=== PATIENT | female | born 1955 ===

== ENCOUNTER 2021-04-20 11:15 | Inpatient (IN) | payer OTHER ==
[~2021-04-20] VITALS: Ht 160 cm; Wt 102.1 kg
[2021-04-20] MEDS ORDERED: NATALIZUMAB (15:29)
[2021-04-20] MEDS ORDERED: FIRICET PO (15:29)
[2021-04-20] MEDS ORDERED: HYZAAR 100-251 EACH PO (15:29)
[2021-04-20] MEDS ORDERED: BACLOF PO (15:30)
[2021-04-20] MEDS ORDERED: ACTHAR IM (15:37)
[2021-04-25] MEDS ORDERED: SERTRALINE HCL50 MG (10:02)
[2021-04-25] MEDS ORDERED: HYDROCHLOROTHIA25 MG (10:02)
[2021-04-25] MEDS ORDERED: BACLOFEN20 MG (10:02)
[2021-04-25] MEDS ORDERED: GABAPENTIN100 M2 (10:02)
[2021-04-25] MEDS ORDERED: BUTALB-ACETAMI1 EACH (10:05)
[2021-04-25] MEDS ORDERED: TYSABRI300 MG/15 (10:05)
[2021-04-25] MEDS ORDERED: ACTHAR (10:06)
== END 2021-04-28 14:31 | DRG 470 ==
LOC: O/R 04-25 07:25 → SURH 04-25 11:15 → SURG 04-25 17:25 → SURH 04-25 19:17
PROVIDERS: ADMIT Orthopaedic Surgery; ATTEND Orthopaedic Surgery
PROC: 0SRC0J9 Replacement of Right Knee Joint with Synthetic Substitute, Cemented, Open Approach (ICD-10-PCS; principal; 2021-04-25 16:45)
DX: M17.11 Unilateral primary osteoarthritis, right knee (principal); D62 Acute posthemorrhagic anemia; M85.861 Other specified disorders of bone density and structure, right lower leg; G35 Multiple sclerosis; I10 Essential (primary) hypertension